=== PATIENT | male | born 1955 | race Caucasian/White ===

== ENCOUNTER 2016-05-31 00:59 | Observation (INO) | payer MEDICARE, OTHER ==
[2016-05-31] MEDS ORDERED: ALBUTEROL/IPRATROPIUM 2.5/0.5 MG 3 ML/EACH DOSE ONE (01:03)
[2016-05-31] MEDS ORDERED: DEXAMETHASONE SOD PHOS 10 MG/1 ML VIAL ONE (01:13)
[2016-05-31 01:23] LABS: ABSOLUTE NEUTROPHIL COUNT 4.1 K/mm3 (1.8-7.7); BASO # 0.1 K/mm3 (0.0-0.2); BASO % 1.1 % (0.2-1.0); EOS # 1.1 (0.0-0.5); EOS % 13.8 % (0.9-2.9); HEMATOCRIT 48.1 % (32.0-52.0); IMM NEUT% 0.1 % (0-1); LYMPH # 2.4 (1.0-4.8); LYMPH % 28.6 % (15-45); MEAN CELL VOLUME 92.1 fl (80.0-94.0); MEAN CORPUSCULAR HEMOGLOBIN 30.7 pg (27.0-31.0); MEAN CORPUSCULAR HGB CONC 33.3 g/dl (33.0-37.0); MEAN PLATELET VOLUME 11.1 fl (7.4-10.4); MONO # 0.6 (0.0-0.8); MONO % 7.3 % (4-12); NEUT % 49.1 % (43-75); PLATELET COUNT 184 K/mm3 (130-400); RED CELL DISTRIBUTION WIDTH 12.7 % (11.5-14.5)
[2016-05-31 01:30] LABS: VENOUS BLOOD GAS BASE EXCESS -0.9 mmol/L (-2.0-2.0); VENOUS BLOOD GAS HCO3 28.3 mmol/L (22.0-27.0)
[2016-05-31] MEDS ORDERED: ALBUTEROL SULFATE 5MG/ML INHALANT 20 ML BOT ONE (01:38)
[2016-05-31 01:52] LABS: CALCIUM 10.1 mg/dL (8.6-10.3)
[2016-05-31] MEDS ORDERED: SUMATRIPTAN SUCCINATE 50 MG TABLET ONE (02:26)
[2016-05-31] MEDS ORDERED: IPRATROPIUM BROMIDE 0.5 MG/2.5 ML DOSE ONE ×2 (02:54)
[2016-05-31] MEDS ORDERED: AZITHROMYCIN 250 MG TABLET ONE (02:57)
[2016-05-31] MEDS ORDERED: PNEUMOCOCCAL 23-VAL P-SAC VAC 0.5 ML VIAL IM V ONE (05:13)
[2016-05-31 05:15] VITALS: BMI 21.8
[2016-05-31] MEDS ORDERED: ALBUTEROL NEB 2.5 MG/3 ML VIAL.NEB NEB PRN (07:03)
[2016-05-31] MEDS ORDERED: MAGNESIUM HYDROXIDE 30 ML UDCUP PO PRN (07:09)
[2016-05-31] MEDS ORDERED: SODIUM CHLORIDE 0.9% 100 ML IV PRN (07:09)
[2016-05-31] MEDS ORDERED: BISACODYL 10 MG SUP PR PRN (07:09)
[2016-05-31] MEDS ORDERED: BISACODYL 5 MG TABLET.EC PO PRN (07:09)
[2016-05-31] MEDS ORDERED: BLISTEX LIPSTICK 1 EACH TP PRN (07:09)
[2016-05-31] MEDS ORDERED: MENTHOL/CETYLPYRD 1 EACH LOZENGE PO PRN (07:09)
[2016-05-31] MEDS ORDERED: ACETAMINOPHEN 325 MG TABLET PO PRN (07:09)
[2016-05-31] MEDS ORDERED: NAPROXEN 250 MG TABLET PO PRN (07:11)
[2016-05-31] MEDS: ENOXAPARIN SODIUM 40 MG/0.4 ML SYRINGE SUB-Q SCH (08:08)
[2016-05-31] MEDS ORDERED: PREDNISONE 20 MG TABLET PO ONE (08:22)
[2016-05-31] MEDS: ATENOLOL 50 MG TABLET PO SCH ×2 (08:22→21:06)
[2016-05-31] MEDS: GABAPENTIN 600 MG TABLET PO SCH ×3 (08:22→21:06)
[2016-05-31] MEDS: DOCUSATE SODIUM 100 MG CAPSULE PO SCH ×2 (08:22→21:06)
[2016-05-31] MEDS ORDERED: NICOTINE POLACRILEX 2 MG LOZENGE PO PRN (08:22)
[2016-05-31] MEDS ORDERED: NICOTINE 14 MG PATCH 1 EACH TD PRN (08:22)
[2016-05-31] MEDS: ALBUTEROL/IPRATROPIUM 2.5/0.5 MG 3 ML/EACH DOSE NEB SCH ×4 (08:39→20:21)
--- NOTE | 2016-05-31 09:07 | RAD ---
05/31/2016 9:03 AM CHEST - 2 VIEWS History: Shortness of breath increasing over last 2 months. Comparison: None Findings: Two views of the chest are obtained. The lungs are clear with out effusion or pneumothorax. The cardiomediastinal silhouette is unremarkable.. The osseous structures are intact.. IMPRESSION: No acute intrathoracic process.
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
[2016-05-31] MEDS: FLUTICASONE/SALMETEROL 250/50 14 PUFFS/DISK IH SCH ×2 (15:19→21:06)
[2016-05-31] MEDS ORDERED: PREDNISONE 20 MG TABLET ONE (15:28)
[2016-06-01] MEDS: ENOXAPARIN SODIUM 40 MG/0.4 ML SYRINGE SUB-Q SCH (08:07)
[2016-06-01 08:51] LABS: ABSOLUTE NEUTROPHIL COUNT 15.6 K/mm3 (1.8-7.7); BASO % 0.2 % (0.2-1.0); HEMATOCRIT 42.8 % (32.0-52.0); IMM NEUT # 0.1 K/mm3 (0-0.2); IMM NEUT% 0.5 % (0-1); LYMPH # 1.3 (1.0-4.8); LYMPH % 7.5 % (15-45); MEAN CELL VOLUME 92.4 fl (80.0-94.0); MEAN CORPUSCULAR HEMOGLOBIN 30.2 pg (27.0-31.0); MEAN CORPUSCULAR HGB CONC 32.7 g/dl (33.0-37.0); MEAN PLATELET VOLUME 11.6 fl (7.4-10.4); MONO # 0.7 (0.0-0.8); NEUT % 87.8 % (43-75); PLATELET COUNT 175 K/mm3 (130-400); RED CELL DISTRIBUTION WIDTH 13.2 % (11.5-14.5)
[2016-06-01] MEDS ORDERED: AZITHROMYCIN 250 MG TABLET PO SCH (09:00)
[2016-06-01] MEDS ORDERED: PREDNISONE 20 MG TABLET PO SCH (09:00)
[2016-06-01 09:12] LABS: CALCIUM 9.4 mg/dL (8.6-10.3)
[2016-06-01] MEDS: FLUTICASONE/SALMETEROL 250/50 14 PUFFS/DISK IH SCH (09:27)
[2016-06-01] MEDS: DOCUSATE SODIUM 100 MG CAPSULE PO SCH (09:28)
[2016-06-01] MEDS: GABAPENTIN 600 MG TABLET PO SCH (09:29)
[2016-06-01] MEDS: ATENOLOL 50 MG TABLET PO SCH (10:03)
[2016-06-01] MEDS ORDERED: FLUTICASONE/SALMETEROL 250/50 14 PUFFS/DISK IH SCH (10:15)
[2016-06-01 11:12] VITALS: BP 110/64
--- NOTE | 2016-06-01 11:56 | PDOC43 ---
- Subjective Chief Complaint: dyspnea Patient reported to be tolerating activity better, doing ok on RA now. Patient reports feeling quite a bit better, doing ok off O2, some soreness with deep breathing, but better overall. Eager to go home/get [facility]. - Objective Vital Signs Temperature 98.0 F 06/01/16 11:11 Pulse Rate 82 06/01/16 11:11 Respiratory Rate 20 06/01/16 11:11 Blood Pressure 110/64 06/01/16 11:11 O2 Saturation by Pulse Oximetry 92 06/01/16 11:11 Oxygen Delivery Method Room Air Oxygen Flow Rate 0 Vital Signs Last 12 Hours Temp Pulse Resp BP Pulse Ox 06/01/16 11:11 98.0 F 82 20 110/64 92 06/01/16 10:41 92 06/01/16 10:01 92 06/01/16 08:11 19 06/01/16 07:48 98.0 F 76 18 112/66 94 06/01/16 07:22 93 06/01/16 06:33 79 22 88 06/01/16 04:00 97.5 F 71 20 106/71 94 06/01/16 01:11 20 06/01/16 00:00 97.8 F 74 20 114/77 94 Intake and Output 05/30/16 05/31/16 06/01/16 23:59 23:59 23:59 Intake Total 1480 1050 Output Total 1050 900 Balance 430 150 Intake & Output 05/31/16 06/01/16 06/01/16 23:59 07:59 15:59 Intake Total 1480 1050 Output Total 1050 900 Balance 430 150 Intake: PO Intake 1480 1050 Output: Void 1050 900 Other: Number of Voids 1 General: Alert, Cooperative, No Acute Distress HEENT: Atraumatic Lungs: Other (improved air movement bilat. Wheeze noted, some cough. No crackles today.) Cardiovascular: Regular Rate and Rhythm Abdomen: Soft, Normal Bowel Sounds, Non-Distended Extremities: No Edema Neurological: Normal Speech Psych/Mental Status: Normal Affect, Other (able to talk better today.) Laboratory 06/01/16 08:40 06/01/16 08:40 06/01/16 08:40 RBC 4.63 L MCHC 32.7 L Current Medications: Current meds reviewed in EMR. Active Medications Acetaminophen (Tylenol) 650 mg PO Q6H PRN PRN Reason: Pain or Temperature > 100.5 F Albuterol Sulfate (Ventolin Inhalation Solution (Dose)) 2.5 mg NEB Q2H PRN PRN Reason: Wheezing Last Admin: 06/01/16 06:33 Dose: 2.5 mg Albuterol/Ipratropium (Duoneb) 3 ml NEB 08,12,16,20 [facility] Last Admin: 05/31/16 20:21 Dose: 3 ml Atenolol (Tenormin) 50 mg PO BID [facility] Last Admin: 06/01/16 10:03 Dose: Not Given Azithromycin (Zithromax) 250 mg PO DAILY [facility] Last Admin: 06/01/16 09:30 Dose: 250 mg Benzocaine/Menthol (Cepacol) 1 each PO PRN PRN PRN Reason: Sore Throat Bisacodyl (Dulcolax) 10 mg [facility] DAILY PRN PRN Reason: Constipation Bisacodyl (Dulcolax) 5 mg PO DAILY PRN PRN Reason: Constipation Docusate Sodium (Colace) 100 mg PO BID [facility] Last Admin: 06/01/16 09:28 Dose: 100 mg Enoxaparin Sodium (Lovenox) 40 mg SUB-Q Q24H [facility] Last Admin: 06/01/16 08:07 Dose: Not Given Gabapentin (Neurontin) 1,200 mg PO TID [facility] Last Admin: 06/01/16 09:29 Dose: 1,200 mg Sodium Chloride (Sodium Chloride 0.9%) 100 mls @ 25 mls/hr IV PRN PRN PRN Reason: Flush Magnesium Hydroxide (Milk Of Magnesia) 30 ml PO DAILY PRN PRN Reason: Constipation Naproxen (Naprosyn) 250 mg PO BID PRN PRN Reason: Pain (Moderate) Last Admin: 06/01/16 07:51 Dose: 250 mg Nicotine (Nicoderm Cq) 1 each TD DAILY PRN PRN Reason: Withdrawal Symptoms Nicotine Polacrilex (Commit Lozenge) 2 mg PO Q2H PRN PRN Reason: Withdrawal Symptoms Petrolatum/Paraffin/Mineral Oil (Blistex) 1 each TP PRN PRN PRN Reason: Dry and/or chapped lips Prednisone (Prednisone) 20 mg PO QAM [facility] Last Admin: 06/01/16 09:30 Dose: 20 mg Fluticasone/Salmeterol (Advair 250/50 Diskus) 1 puff IH BID [facility] Last Admin: 06/01/16 09:27 Dose: 1 inh Sodium Chloride (Normal Saline 10ml Flush) 10 - 50 ml IV PRN PRN PRN Reason: IV Flush Sodium Chloride (Normal Saline 10ml Flush) 10 ml IV Q8HR [facility] Last Admin: 06/01/16 09:29 Dose: 10 ml - Problems: Assessment/Plan (1) COPD exacerbation Status: Acute Assessment/Plan: suspect combined emphysema and reactive airways/asthma. with respiratory distress (not ARDS), now improved. still with significant obstructive sx. Plan DC with meds and follow [facility] with [facility]. Strongly encouraged not smoking. (2) Elevated glucose Status: Acute Assessment/Plan: Elevated glucose attributed to steroids started to tx COPD. Anticipate metformin to take while on prednisone, ask [facility] about follow up glucose checks. VTE Prophylaxis: enoxaparin Disposition: Anticipate DC to home today.
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
== END 2016-06-01 12:35 | disposition home or self-care (01) ==
LOC: ED 00:59 → MS 03:44
PROVIDERS: ADMIT Family Medicine; ATTEND Family Medicine
DX: J44.1 Chronic obstructive pulmonary disease with (acute) exacerbation (principal); F17.210 Nicotine dependence, cigarettes, uncomplicated; R06.00 Dyspnea, unspecified; R51 Headache; G89.29 Other chronic pain; I10 Essential (primary) hypertension; F15.90 Other stimulant use, unspecified, uncomplicated; F12.90 Cannabis use, unspecified, uncomplicated; Z23 Encounter for immunization
CPT/HCPCS: 90732; 82803; 85025 ×2; 80048 ×2; 80307; 84484; 71020; 71250; 94640 ×6; 94644; 99285 ×2; 96374; 93005; J7645 ×2; A9270 ×13; J1100; J1650; J7512 ×2